=== PATIENT | female | born 1965 | race Caucasian/White ===

== ENCOUNTER → 2020-09-25 11:45 | Outpatient (BNVA) | payer OTHER, SELFPAY | PROVIDERS: Referring Provider Family Medicine; Visit Provider Podiatrist Foot & Ankle Surgery | DX: M79.672 Pain in left foot (principal) | CPT/HCPCS: 73630 ==

== ENCOUNTER 2022-06-28 12:21 | Emergency (ER) | payer OTHER, SELFPAY ==
[2022-06-28] VITALS (8 sets, daily range): BP systolic 104–154; BP diastolic 60–80; PULSE 49–65; RESP 16–20; TEMP 35.6; O2SAT 88–100
--- NOTE | 2022-06-28 13:07 | CT_ITS ---
WS: [id number] CT ABDOMEN PELVIS TECHNIQUE: Noncontrast CT of the abdomen and pelvis with coronal and sagittal reformatted images. CLINICAL INFORMATION: flank pain COMPARISON: None. DLP: 967.[address] scans at [facility] use at least one of these dose optimization techniques: automated e xposure control; mA and/or kV adjustment per patient size (includes targeted exams where dose is matc hed to clinical indication); or iterative reconstruction. FINDINGS: No hydronephrosis. No obstructing RIGHT renal or ureteral calculi. No obstructing LEFT renal or urete ral calculi. Pelvic phleboliths.Normal appendix in the RIGHT lower quadrant. Moderate sigmoid constip ation. Slight bibasilar atelectasis. Normal noncontrast liver and spleen. Normal GE junction. Adrenal glands are normal. Normal noncontrast pancreas. Noncontrast gallbladder appears normal. Normal caliber abdo onur aorta. Urine distended bladder. Normal sigmoid colon. No periaortic or pelvic lymphadenopathy. No inguinal lymphadenopathy. Slight an terolisthesis L4 on L5. Mild disc bulging L4-L5 and L5-S1. CT/CT kidney stone [id number] IMPRESSION: 1. No hydronephrosis in either kidney. No obstructing renal or ureteral calcul i. 2. Normal appendix in the RIGHT lower quadrant. 3. Moderate sigmoid constipation. 4. No other suspicious findings.
[2022-06-28] MEDS: ondansetron 2 mg/ML SDV 2 mL 4 MG IVP (13:18)
[2022-06-28] MEDS: morphine 4 mg/mL SDV 1 mL IVP (13:18)
[2022-06-28 13:36] LABS: Basophils % 0.3 %; Eosinophils # 0.2 10^3/uL (0.0-0.8); Eosinophils % 1.6 %; Hematocrit 44.5 % (37.0-47.0); Hemoglobin 14.7 g/dL (11.5-15.3); Lymphocytes # 2.6 10^3/uL (0.8-4.8); Lymphocytes % 28.2 %; Mean Corpuscular Hemoglobin 30.5 pg (28.0-34.0); Mean Corpuscular Volume 92.3 fl (81-99); Mean Platelet Volume 10.6 fL (7.4-10.4); Monocytes # 0.6 10^3/uL (0.2-0.9); Monocytes % 6.5 %; Neutrophils # 5.79 10^3/uL (1.8-7.7); Neutrophils % 63.1 %; Nucleated Red Blood Cells % 0 %; Platelet Count 240 10^3/cmm (130-400); Red Blood Count 4.82 10^6/uL (4.1-5.3); Red Cell Distribution Width 12.1 % (12.1-15.1); White Blood Count 9.2 10^3/uL (4.0-10.0)
--- NOTE | 2022-06-28 13:38 | ED_ITS ---
HPI - Abdominal Pain General: Chief Complaint: Abdominal Pain Stated Complaint: Sent by [place], Kidney Stones Time Seen by Provider: 06/28/22 13:06 Source: patient Mode of arrival: ambulatory History of Present Illness: Patient presents emergency room complaining of right flank pain. She was seen at the [facility] and advised that she had a kidney stone was directed to the emergency room on arrival here she complaining severe right flank pain however she has not noticed any hematuria. No fever sweats or chills. MD elicited complaint: flank pain (R) Pertinent past history: kidney stones Onset (ago): hour(s) Pain Consistency: constant Location: R flank Severity: severe Quality: sharp Exacerbating factors: nothing Relieving factors: nothing Associated Symptoms: Reports nausea and poor appetite; Denies anorexia, belching, bloating, change in bowel habits, change in stool character, chills, coffee ground emesis, constipation, GI cramping, diarrhea, dy spepsia, dysuria, excessive flatus, fever(s), heartburn, hematochezia, hematuria, hematemesis, fecal incontinence, loose stools, melena, syncope and vomiting Review of Systems Const: Denies: fever(s) or chills ENMT: Denies: throat pain, ear or mastoid pain, nasal discharge or nasal congestion Card: Denies: syncope Resp: Denies: dyspnea, productive cough or non-productive cough GI: Reports: nausea; Denies: abdominal pain, vomiting, hematemesis, coffee ground emesis, heartburn, diarrhea, constipation, bloating, GI cramping, belching, excessive flatus, fecal incontinence, change in bowel habits, change in stool character, hematochezia or melena : Reports: flank pain; Denies: difficulty voiding, dysuria, urinary frequency, urinary urgency or hematuria Skin/Breast: Denies: rash or pruritus PFSH ED PFSH: Social History Second hand smoke exposure: No Smoking risk assessment/counseling performed?: No Alcohol intake: never Desire information about alcohol rehabilitation?: No Counseling given: No Desire information about substance/drug rehabilitation?: No Counseling given: No Physical Exam Const: COMMON NORMALS: no acute distress GENERAL APPEARANCE: cooperative and comfortable ORIENTATION/CONSCIOUSNESS: Yes awake, Yes oriented to person, Yes oriented to place and Yes oriented to time HENMT: COMMON NORMALS: normocephalic, atraumatic and hearing grossly normal bilaterally HEAD & SCALP: normocephalic and atraumatic Resp: COMMON NORMALS: normal respiratory effort, No retractions, No use of accessory muscles and clear to auscultation bilaterally AUSCULTATION: clear to auscultation bilaterally Cardio: COMMON NORMALS: regular rate, regular rhythm and No murmurs present (Cardio) RATE: regular rate RHYTHM: regular rhythm GI: COMMON NORMALS: Soft to palpation and No hepatosplenomegaly present AUSCULTATION: Yes normoactive bowel sounds PALPATION: Yes Soft to palpation, No Tenderness to palpation present (GI), No Guarding due to palpation present (GI) and Yes No hepatosplenomegaly present : BLADDER/KIDNEY EXAM: Yes CVA tenderness Back/Pelvis: GENERAL BACK: Yes CVA tenderness CVA tenderness: right Extremity: COMMON NORMALS: normal to inspection, capillary refill normal, no clubbing, cyanosis or edema, no calf tenderness and no pedal edema Neuro: SENSORIUM/ORIENTATION: Yes oriented to person, Yes oriented to place and Yes oriented to time Skin: COMMON NORMALS: no rashes or lesions noted GENERAL SKIN EXAM: no rashes or lesions noted Course Vital Signs: Vital signs: Vital Signs Temperature 96.1 F L 06/28/22 12:33 Pulse Rate 49 L 06/28/22 14:05 Respiratory Rate 16 06/28/22 14:05 Blood Pressure 139/60 06/28/22 14:05 Pulse Oximetry 98 06/28/22 14:05 Oxygen Delivery Me thod 06/28/22 14:05 Oxygen Flow Rate 2 06/28/22 14:05 MDM - Abdominal Pain Medical Decision Making Mildly low potassium and slightly elevated alk phos for face. White count was normal and the CT only showed moderate constipation. Symptoms have resolved. Will discharge patient home clear liquid diet for 24 to 48 hours and advance as tolerated. Medical Records I reviewed the patient's medical records. Lab Data I reviewed the patient's lab results. 06/28/22 13:26 06/28/22 13:26 Labs/Radiology: Radiology Impressions Abdomen/Pelvis CT 06/28/22 13:07 IMPRESSION: 1. No hydronephrosis in either kidney. No obstructing renal or ureteral calculi. 2. Normal appendix in the RIGHT lower quadrant. 3. Moderate sigmoid constipation. 4. No other suspicious findings. Laboratory Results WBC 9.2 10^3/uL (4.0-10.0) 06/28/22: RBC 4.82 10^6/uL (4.1-5.3) 06/28/22: Hgb 14.7 g/dL (11.5-15.3) 06/28/22: Hct 44.5 % (37.0-47.0) 06/28/22: MCV 92.3 fl (81-99) 06/28/22: MCH 30.5 pg (28.0-34.0) 06/28/22: MCHC 33.0 g/dL (30.0-36.0) 06/28/22: RDW 12.1 % (12.1-15.1) 06/28/22: Plt Count 240 10^3/cmm (130-400) 06/28/22: MPV 10.6 fL (7.4-10.4) H 06/28/22: Neut % (Auto) 63.1 % 06/28/22: Lymph % (Auto) 28.2 % 06/28/22: [place] % (Auto) 6.5 % 06/28/22: Eos % (Auto) 1.6 % 06/28/22: Baso % (Auto) 0.3 % 06/28/22 Neut # (Auto) 5.79 10^3/uL (1.8-7.7) 06/28/22: Lymph # (Auto) 2.6 10^3/uL (0.8-4.8) 06/28/22: [place] # (Auto) 0.6 10^3/uL (0.2-0.9) 06/28/22: Eos # (Auto) 0.2 10^3/uL (0.0-0.8) 06/28/22: Baso # (Auto) 0.0 10^3/uL (0.0-0.1) 06/28/22: Nucleated RBC % (auto) 0 % 06/28/22: Nucleated RBCs # 0.0 /100WBC 06/28/22 13:26 Sodium 139 mmol/L (136-145) 06/28/22 13: Potassium 3.3 mmol/L (3.5-5.1) L 06/28/22 13: Chloride 102 mmol/L (98-107) 06/28/22 13: Carbon Dioxide 22 mmol/L (22-29) 06/28/22: Anion Gap 18.3 (5-19) 06/28/22 13: BUN 11 mg/dL (6-20) 06/28/22 13: Creatinine 1.0 mg/dL (0.5-0.9) H 06/28/22 13: GFR Calculation 57.1 mL/min (90-130) L 06/28/22 13: Glucose 95 mg/dL (65-115) 06/28/22 13: Calculated Osmolality 287 mOsm/kg (285-295) 06/28/22: Calcium 10.4 mg/dL (8.5-10.5) 06/28/22 13: Total Bilirubin 0.3 mg/dL (0.15-1.2) 06/28/22 13: AST 24 U/L (0-32) 06/28/22 13: ALT 25 U/L (0-33) 06/28/22 13: Alkaline Phosphatase 173 U/L (35-105) H 06/28/22 13: Total Protein 7.6 g/dL (6.6-8.7) 06/28/22 13: Albumin 4.6 g/dL (3.5-5.2) 06/28/22 13: Globulin 3.0 g/dL (1.3-4.6) 06/28/22 13:26 Urine Color Straw (Yellow) 06/28/22 13: Urine Appearance Clear (CLEAR) 06/28/22 13: Urine pH 8 (5-7) H 06/28/22 13: Ur Specific [place] 1.015 (1.005-1.030) 06/28/22 13:08 Urine Protein Neg (Negative) 06/28/22 13: Urine Glucose (UA) Norm (Normal) 06/28/22 13:08 Urine Ketones Negative (Negative) 06/28/22 13:08 Urine Blood Neg (Negative) 06/28/22 13:08 Urine Nitrate Negative (Negative) 06/28/22 13:08 Urine Bilirubin Neg (Negative) 06/28/22 13:08 Prot Sulfosalicylic Acd Negative (Negative) 06/28/22 13:08 Urine Urobilinogen Neg mg/dL (Negative) 06/28/22 13:08 Ur Leukocyte Esterase Trace (Negative) H 06/28/22 13:08 Urine RBC None /hpf (0-2) 06/28/22 13:08 Urine WBC None /hpf (0-5) 06/28/22 13:08 Ur Squamous Epith Cells 0-4 /hpf (0-5) H 06/28/22 13:08 Amorphous Sediment Not Reportable 06/28/22 13:08 Urine Bacteria None /hpf (NONE) 06/28/22 13:08 Discharge Plan Discharge Patient Disposition: Home Clinical Impression: Abdominal pain, Constipation Condition: Stable Prescriptions: No Action clopidogrel [Plavix] 75 mg tablet 75 mg PO DAILY atorvastatin [Lipitor] 80 mg tablet 80 mg PO DAILY coenzyme Q10 10 mg capsule 10 mg PO DAILY famotidine 20 mg tablet 20 mg PO BID magnesium oxide 420 mg tablet 420 mg PO DAILY multivitamin Tablet 1 tab PO DAILY levetiracetam [Keppra] 500 mg tablet 500 mg PO BID cholecalciferol (vitamin D3) 10 mcg (400 unit) capsule 10 mcg PO DAILY simethicone [Gas-X Extra Strength] 125 mg capsule 125 mg PO BID PRN prednisolone sodium phosphate 10 mg tablet,disintegrating 10 mg PO DAILY 12 Days Qty: 42 0RF Rx Instructions: PT has taper instructions. Discharge Orders: Discharge ED (Routine); Ordered 06/28/22 Ordered By: Ky Chambers Referrals: Kristal Porter FNP [Primary Care Provider] - Patient Instructions: Abdominal Pain (ED), Opioid Safety, Pain Management Activity Restrictions/Additional Instructions: You were seen today for abdominal pain. Your laboratory studies were normal with the exception of a slightly low potassium your white count was normal. CT of the abdomen did not show any acute abnormalities, there was some constipation. Recommend clear liquid diet for 24 to 48 hours and advance as tolerated. You can use [id number] laxatives to relieve the constipation. Coding Level of Care Code ED Passenger Screener for Chg Fwd Exam Comprehensive
[2022-06-28 13:45] LABS: Bilirubin Urine Neg (Negative); Blood Urine Neg (Negative); Glucose Urine UA Norm (Normal); Ketones Urine Negative (Negative); Nitrate Urine Negative (Negative); Protein Urine Neg (Negative); Specific Gravity, Urine 1.015 (1.005-1.030); Sulfosalicylic Acid Urine Negative (Negative); Urine Appearance Clear (CLEAR); Urine Color Straw (Yellow); Urobilinogen Urine Neg (Negative); pH Urine 8 (5-7)
[2022-06-28 13:46] LABS: Add Urine Culture? No; Add Urine Microscopic? YES; Leukocyte Esterase Urine Trace (Negative); Squamous Epithelial Cell Urine 0-4 /hpf (0-5)
[2022-06-28 13:53] LABS: Alanine Aminotransferase 25 U/L (0-33); Albumin Level 4.6 g/dL (3.5-5.2); Alkaline Phosphatase 173 U/L (35-105); Aspartate Amino Transferase 24 U/L (0-32); Blood Urea Nitrogen 11 mg/dL (6-20); Calcium 10.4 mg/dL (8.5-10.5); Carbon Dioxide 22 mmol/L (22-29); Chloride 102 mmol/L (98-107); Glomerular Filtration Rate 57.1 mL/min (90-130); Glucose 95 mg/dL (65-115); Osmolality Calculated 287 mOsm/kg (285-295); Sodium 139 mmol/L (136-145); Total Bilirubin 0.3 mg/dL (0.15-1.2); Total Protein 7.6 g/dL (6.6-8.7)
[2022-06-28 13:58] LABS: Anion Gap 18.3 (5-19); Potassium 3.3 mmol/L (3.5-5.1)
--- NOTE | 2022-06-28 14:02 | PC.NURSE ---
PT O2 SATS DECREASED WHILE PT RESTING. PT PLACED ON TWO LITERS O2 NC
[2022-06-28] MEDS: potassium chloride oral liq 20 mEq/15 mL UDC 40 MEQ PO (15:03)
== END 2022-06-28 16:18 | disposition home or self-care (01) ==
PROVIDERS: Emergency Provider Family Medicine; PCP Nurse Practitioner
DX: K59.00 Constipation, unspecified (principal); Z79.02 Long term (current) use of antithrombotics/antiplatelets
CPT/HCPCS: 74176; 80053; 81001; 85025; 96374; 96375; 99285; J2270; J2405

== ENCOUNTER → 2023-08-08 08:00 | Outpatient (BNVA) | payer OTHER, SELFPAY | PROVIDERS: PCP Nurse Practitioner; Visit Provider Nurse Practitioner Family | DX: L57.0 Actinic keratosis (principal); L82.1 Other seborrheic keratosis; L73.8 Other specified follicular disorders; D18.01 Hemangioma of skin and subcutaneous tissue; L57.8 Other skin changes due to chronic exposure to nonionizing radiation | CPT/HCPCS: 17000; 99213 ==

== ENCOUNTER → 2024-02-06 10:31 | Outpatient (BNVA) | payer OTHER, SELFPAY | PROVIDERS: PCP Nurse Practitioner; Visit Provider Nurse Practitioner Family | DX: L82.1 Other seborrheic keratosis (principal); L73.8 Other specified follicular disorders; D18.01 Hemangioma of skin and subcutaneous tissue; L87.8 Other transepidermal elimination disorders; L82.0 Inflamed seborrheic keratosis | CPT/HCPCS: 17000; 17110; 99213 ==

== ENCOUNTER → 2024-05-11 07:57 | Outpatient (BNVA) | payer OTHER, SELFPAY | PROVIDERS: PCP Nurse Practitioner; Referring Provider Nurse Practitioner; Visit Provider Specialist | DX: R20.0 Anesthesia of skin (principal); R20.2 Paresthesia of skin; G56.21 Lesion of ulnar nerve, right upper limb | CPT/HCPCS: 95910 ==

== ENCOUNTER → 2024-08-10 10:18 | Outpatient (BNVA) | payer OTHER, SELFPAY | PROVIDERS: PCP Nurse Practitioner; Visit Provider Nurse Practitioner Family | DX: L23.89 Allergic contact dermatitis due to other agents (principal); L57.8 Other skin changes due to chronic exposure to nonionizing radiation; B07.8 Other viral warts; R20.8 Other disturbances of skin sensation; Z78.9 Other specified health status; L57.0 Actinic keratosis | CPT/HCPCS: 17000; 17110; 99214 ==

== ENCOUNTER → 2025-01-19 13:23 | Outpatient (BNVA) | payer OTHER, SELFPAY | PROVIDERS: PCP Nurse Practitioner; Visit Provider Nurse Practitioner Family | DX: L57.8 Other skin changes due to chronic exposure to nonionizing radiation (principal); D18.01 Hemangioma of skin and subcutaneous tissue; L82.0 Inflamed seborrheic keratosis; Z78.9 Other specified health status; L53.8 Other specified erythematous conditions; D48.5 Neoplasm of uncertain behavior of skin; L57.0 Actinic keratosis | CPT/HCPCS: 11102; 17000; 17110; 99213 ==